=== PATIENT | female | born 1990 | race Caucasian/White ===

== ENCOUNTER → 2018-03-05 08:53 | Outpatient (CLI) | payer OTHER, SELFPAY ==
--- NOTE | 2018-03-05 08:56 | DI.RAD.S_ITS ---
PROCEDURE: XR CHEST 2V INDICATIONS: Persistent cough TECHNIQUE: 2 views of the chest were acquired. COMPARISON: None. FINDINGS: Surgical changes and devices: None. Lungs and pleura: No pleural effusions or pneumothorax. Lungs are clear. Mediastinum: Mediastinal contours are normal. Heart size is normal. Bones and chest wall: No suspicious bony abnormalities. Soft tissues appear unremarkable. IMPRESSION: No acute cardiopulmonary pathology. Dictated by: Jose Ogden M.D. on 03/05/2018 at 9:22 Approved by: Jose Ogden M.D. on 03/05/2018 at 9:22
[2018-03-05 09:21] LABS: D Dimer 356 ng/mL (<230)
== END ==
PROVIDERS: Visit Provider Physician Assistant
DX: R05 Cough (principal)
CPT/HCPCS: 36415; 71046; 85379

== ENCOUNTER 2023-11-05 06:07 | Observation (INO) | payer OTHER, SELFPAY ==
[2023-11-05] MEDS: TERBUTALINE 1 MG/ML VIAL 0.25 MG SUBCUT (07:45)
[2023-11-05] MEDS: MINERAL OIL 30 ML UDC TOP (07:47)
--- NOTE | 2023-11-05 08:38 | P.TNLD_ITS ---
Visit Information Visit Information Date of evaluation: 11/05/23 Primary OB Provider: Laina Villarreal On-call OB Provider: Laina Villarreal Reason for Evaluation: Yes other Comments/Additional reasons for admission: Lacey is a 33 year old at 37w2d by LMP and confirmed by 12 week ultrasound. She is here today for ECV due to breech presentation confirmed at 36w0d and 37w0d by in office ultrasound. Lacey thought her baby was head down since 32 weeks because she felt hiccups in lower abdomen, but now believes that baby has not changed position since that time except for rolling back and forth. Has been trying spinning babies positioning and chiropractic for the last 1.5 weeks. Plans to try acupuncture/moxibustion as well. Found procedure today painful, but tolerated it well. Vital Signs Vital Signs: BP: 134/78 HR: 90 Temp 97.1 F [facility] Surgical History (Updated 07/27/17 @ 05:46 by Conversion Provider) History of third molar tooth extraction Social History Smoking Status: Former smoker Objective Labs Labs: Laboratory Results - last 24 hr 11/05/23 06:50 Blood Type A Positive Antibody Screen Negative Evaluation Evaluation Baseline heart rate: 125 Variability: Moderate (11-25) monitor accelerations: Present Monitor Decelerations: Absent Contraction Frequency (minutes): 10 (irregular, painless) Category of Tracing: Reactive Comments: ECV: Ultrasound confirmed: vertex in mid, upper abdomen and spine on maternal Right with side wall/anterior placenta on that side. Per Dr. Morejon, placenta appears calcified via ultrasound and amniotic fluid appears normal. Forward soni attempted. Terbutaline given IM prior to procedure. Nitrous oxide used by Lacey during procedure. Fetus did not tolerate rotation, so discontinued attempt. Diagnosis, Plan/Disposition Final Diagnosis (1) Breech presentation: Status: Acute (2) Supervision of normal in third trimester: Status: Acute Plan/Disposition Plan: at 37w2d Breech presentation ECV attempted by Dr. Morejon and myself. Not successful. PCS scheduled for 11/22/23 at 39w5d. Recommend pulsatilla, moxibustion, continue spinning babies. Reviewed risks of cord prolapse and proper procedure with ROM at home. RTC for scheduled PNV next week in clinic. Discharge home today after 60 minutes of normal FHR tracing/RNST.
== END 2023-11-05 09:18 | disposition home or self-care (01) ==
PROVIDERS: Admitting Provider Advanced Practice Midwife; PCP Advanced Practice Midwife; Referring Provider Advanced Practice Midwife; Visit Provider Advanced Practice Midwife
DX: O32.1XX0 Maternal care for breech presentation, not applicable or unspecified (principal); Z3A.37 37 weeks gestation of pregnancy
CPT/HCPCS: 36415; 59050; 59412; 76815; 86850; 86900; 86901; 96372; G0378; A9270; G0379

== ENCOUNTER 2023-11-22 05:37 | Inpatient (IN) | payer OTHER, SELFPAY ==
[2023-11-22] MEDS: LACTATED RINGERS 1,000 ML 999 ML IV (07:21)
--- NOTE | 2023-11-22 07:45 | PM.OBHP.1 ---
OB HPI Date/Time Date of admission: 11/22/23 Date Patient Seen: 11/22/23 Time Patient Seen: 07:46 History of Present Condition Chief complaint: Section : 2 Para: 1 Estimated Date of Delivery: 11/24/23 Estimated Gestational Age (weeks): 39+5 Narrative: Lacey Barnett is a 33 year old female Comments: admitted for planned primary due to breech presentation. She denies regular ctx, VB, LOF, or decreased FM. Indications Operative indications ( section): breech presentation History of Present care: good care Dating criteria: LMP confirmed by 1st trimester US Ultrasounds: normal mid trimester US Narrative: Specific Issues/Plans Breech presentation (failed ECV)--> scheduled for primary 11/21 [facility] Preadmission Labs Blood type: A (+) positive -: Antibody screen: negative, Cystic fibrosis screen: unknown, GBS status: negative, HBsAG: negative, HIV: negative, HSV 1: unknown, HSV 2: unknown and RPR/VDLR: negative -: Chlamydia screen: not detected and Gonorrhea screen: not detected -: Rubella: immune and Varicella: immune HCT: 38.6 HCAB: negative PAP: Normal Evaluation Evaluation Baseline heart rate: 125 Variability: Moderate (11-25) monitor accelerations: Present Monitor Decelerations: Absent Contraction Frequency (minutes): 5 Category of Tracing: Reactive [facility] Medical History Vaginal delivery High herpes simplex virus (HSV) antibody titer Surgical History History of third molar tooth extraction Social History Smoking Status: Former smoker alcohol intake: former substance use type: does not use Meds Home Medications and Allergies Home Medications Medication Instructions Recorded Confirmed Type prenat.vits,bri,dvg-iual-hudwd 1 tab PO DAILY 02/25/18 11/12/23 History acyclovir 400 mg tablet 400 mg PO TID 11/12/23 11/12/23 History Allergies Allergy/AdvReac Type Severity Reaction Status Date / Time acetaminophen [From Tylenol] Allergy Verified 11/22/23 07:08 azithromycin Allergy hives Verified 11/22/23 07:08 SULFA Allergy Mild unknown Uncoded 11/12/23 11:01 Review of Systems Review of Systems ROS: Yes All systems reviewed with the patient and are negative except as otherwise documented OB Exam Vital signs Blood Pressure: 136/82 Pulse Rate: 95 Temperature: 98.8 F HENMT Head: normal to inspection Resp Effort & Inspection: normal respiratory effort and able to speak in complete sentences Cardio Rate: regular rate Rhythm: regular rhythm Extremities Lower extremity: Yes normal to inspection GI Other: gravid, nontender, nondistended Objective Labs 11/22/23 07:19 Assessment and Plan Assessment and Plan Assessment and Plan narrative: 33yo at 39+5wks admitted for planned primary due to breech presentation after failed ECV a few weeks ago. -CBC, T&S on admission -NST on admission -neuraxial anesthesia -GBS neg -PPH risk low -VTE risk low, SCDs for ppx -will move to OR for delivery once all teams ready counseling: It was explained to the patient that a section is a surgery to deliver the baby through an incision in the abdominal wall and uterus.? All procedures can be associated with risk and unforeseen complications, which can be immediate or delayed.? Risks and complications of section include, but are not limited to:? infection of the uterus, pelvic organs, or skin; inadvertent injury to internal organs such as the bowel, bladder, or possibly even the baby; blood loss, transfusion, and/or life-threatening hemorrhage requiring hysterectomy; blood clots in the legs, pelvic organs, or lungs; adverse reaction to medications or anesthesia during surgery; development of placenta accreta spectrum in a subsequent ; and increased risk of section in a subsequent . Time-Based Coding :: [30min] spent with patient and on the chart (including review of chart, obtaining history, exam, reviewing outside data, placing orders, documenting exam and treatment plan, and counseling patient) on [11/22/23].
[2023-11-22 07:56] VITALS: BP 136/82; PULSE 95; TEMP 37.1
[2023-11-22 08:00] LABS: Add Manual Diff / Slide Review NO; Basophils Absolute Auto 0 /uL (0-100); Basophils Percent Auto 0.4 % (0-2); Eosinophils Absolute Auto 100 /uL (0-450); Eosinophils Percent Auto 0.7 % (2-4); Hematocrit 33.7 % (36-46); Hemoglobin 11.4 g/dL (12.0-16.0); Lymphocytes Absolute Auto 1700 /uL (1100-4500); Lymphocytes Percent Auto 19.8 % (25-40); Mean Corpuscular HGB Conc 33.7 % (30-36); Mean Corpuscular Hemoglobin 29.7 PG (26-34); Mean Corpuscular Volume 88.1 fL (80-100); Monocytes Absolute Auto 800 /uL (0-900); Monocytes Percent Auto 9.9 % (3-14); Neutrophils Absolute Auto 5900 /uL (1500-7000); Neutrophils Percent Auto 69.2 % (50-75); Platelet Count 208 X10^3/uL (150-400); Red Blood Cell Count 3.83 X10^6/uL (4.0-5.2); White Blood Cell Count 8.5 X10^3/uL (4.5-11.0)
[2023-11-22] MEDS: CITRIC ACID/SODIUM CITRATE 15 ML SOLUTION 30 ML PO (08:04)
[2023-11-22] MEDS: CEFAZOLIN 2 GM/100 ML PREMIX 100 ML IV (08:40)
--- NOTE | 2023-11-22 08:51 | SUR.OPER ---
Supine on Padded OR bed, head on pillow, safety belt at thigh, arms secured on padded arm boards at <90 degrees abduction. Bump under right buttock. Legs uncrossed with pillow under knees, gel pad to heels, tape over blanket to lower legs.
--- NOTE | 2023-11-22 09:12 | SUR.OPER ---
Viable baby boy born at 0853 on 11-22-[birth year]23.
[2023-11-22 09:36] VITALS: BP 101/48; PULSE 67; RESP 16; TEMP 36.2; O2SAT 98
--- NOTE | 2023-11-22 09:36 | PM.OBCS.1 ---
Operative Date/Time/Diagnoses Date of procedure: 11/22/23 Time of procedure: 08:45 Pre-op diagnosis: 1. Hopkins intrauterine gestation at 39+5wks 2. Breech presentation Post-op diagnosis: same Procedure & Clinicians Procedure: Primary low transverse section Same procedure as scheduled: Yes Indications: 33yo at 39+5 weeks EGA admitted on 11/22/23 for planned due to breech presentation. Patient had undergone a failed ECV attempt at 37wks. Surgeon: Lucero Polk Click Yes if Unassisted: No Storage Specialist: Laina Villarreal Reason for Storage Specialist: Storage Specialist was necessary for timely, efficient, and safe completion of the procedure. Anesthesia Type: Spinal Operative Notes Findings: Normal-appearing uterus and bilateral fallopian tubes and ovaries. Clear fluid noted with AROM. Delivery productive of a viable male infant in tameka breech presentation with APGARs 8/9 and weighing 3509g. Closure Type: primary Specimen(s): cord blood Intraoperative meds administered: Duramorph Applied: Catheter Estimated Blood Loss (mL): 700 Blood products transfused: none Procedure in detail: The risks, benefits, indications and alternatives of the procedure were reviewed with the patient and informed consent was obtained. The patient was taken to the operating room where spinal anesthesia was obtained without difficulty and was found to be adequate. Sequential compression devices were placed bilaterally for VTE prophylaxis. She was then prepped and draped in the normal, sterile fashion in the dorsal supine position with a leftward tilt. She received 2g Ancef for surgical prophylaxis. A Pfannenstiel skin incision was then made with the scalpel and carried through to the underlying layer of fascia. The fascia was incised in the midline and the fascia was digitally. The rectus muscles were then at the midline. The peritoneum was identified, and entered digitally. The peritoneal incision was then extended horizontally, superiorly and inferiorly, with good visualization of the bladder. The Caesar retractor was then inserted. The lower uterine segment was incised in a transverse fashion with the scalpel. The uterine incision was then extended manually in a cephalad/caudad direction. The ?s sacrum was grasped and brought to the level of the hysterotomy. Pinard?s maneuver was used to atraumatically deliver the legs through the hysterotomy. A blue towel was placed around the sacrum and Loveset?s maneuver was performed to the level of the scapula.? The bilateral arms were swept and delivered followed by the head using the Ojutkbsys-Iiemlof-Nwer maneuver. The cord was doubly clamped and cut after a 60sec delay with the infant handed off to the waiting pediatrics team. The placenta was then removed spontaneously with gentle traction on the umbilical cord. The uterus was then left in-situ and cleared of all clots and debris. The uterine incision was repaired with 0-vicryl in a running, locked fashion. A second layer using 0-monocryl was then used to imbricate the hysterotomy with excellent hemostasis achieved. The hysterotomy was again noted to be hemostatic. The paracolic gutters were cleared of all clot and debris. The Caesar retractor was then removed. The fascia was reapproximated with 0-vicryl in a running fashion. The subcutaneous layer was closed with 3-0 vicryl in simple, interrupted sutures. The skin was closed with 4-0 monocryl in a subcuticular fashion. The incision was then dressed with steri-strips and an Aqucel dressing was applied. At the completion of the case, a Crede maneuver was performed with good uterine tone and minimal vaginal bleeding noted.? The patient tolerated the procedure well. Sponge, lap and needle counts were correct x3. The patient was taken to the recovery room in stable condition. The patient is a candidate for a trial of labor after . Complications: none Post-operative Condition: stable Disposition: PACU Aftercare: routine postop
[2023-11-22 09:41] VITALS: BP 98/60; PULSE 67; RESP 16; O2SAT 98
[2023-11-22 09:57] VITALS: BP 113/60; PULSE 78; RESP 16; TEMP 36.8; O2SAT 98
[2023-11-22 10:01] VITALS: BP 110/78; PULSE 78; RESP 16; O2SAT 98
--- NOTE | 2023-11-22 10:38 | PM.AN.REGBLK ---
Regional Block Pre-procedure Attending OB provider: Lucero Polk PMH/ROS narrative: Healthy 33yo female here for scheduled primary C/S for breech , otherwise normal; prior 7 yrs ago also unremarkable and delivered via vaginal delivery w/ uncomplicated labor epidural for analgesia. Pt has no other medical hx or anesthetic hx. No bleeding/clotting disorders, not on anticoagulants, no asthma, no HTN/pre-E/PIH. Plan for single shot spinal as primary surgical anesthetic. Pt agreeable. Hx: No personal or family history of anesthesia problems. Exam narrative: A&Ox4, no acute distress, not laboring. CTAB, nml WOB on RA. RRR MP2, no loose/missing teeth, no dentures, full neck ROM ASA Class: II Labs: Hct 33.7 % (36-46) L 11/22/23 07:19 Plt Count 208 X10^3/uL (150-400) 11/22/23 07:19 Medications: Current Medications Generic Name Dose Route Start Last Admin Trade Name Freq PRN Reason Stop Dose Admin Oxytocin/Lactated Ringer's 30 unit in 500 mls @ 200 mls/hr 11/22/23 07:24 Oxytocin Premix IV CONT PRN Bleeding Protocol Metoclopramide HCl 10 mg 11/22/23 09:59 Metoclopramide 10 Mg/2 Ml Inj IV NOW PRN Nausea And Vomiting Oxytocin 10 unit 11/22/23 07:24 Oxytocin 10 Unit/Ml Vial IM NOW PRN Bleeding Allergies: Allergies Allergy/AdvReac Type Severity Reaction Status Date / Time acetaminophen [From Tylenol] Allergy Verified 11/22/23 07:08 azithromycin Allergy hives Verified 11/22/23 07:08 SULFA Allergy Mild unknown Uncoded 11/12/23 11:01 Procedure Insertion date: 11/22/23 Insertion time: 08:29 Prep/Local: betadine x3 (Chloraprep) and 1% lidocaine Interspace: L3-4 Patient position: sitting Sensory level: Bilateral T4 Insertion: Yes CSF Post-procedure Anesthesia date END: 11/22/23 Post-procedure Anesthesia Assessment: Yes CV function: HR/BP stable, Yes Resp function: RR/sat/airway adequate, Yes Post-op hydration adequate, Yes Pain control adequate, Yes Nausea & vomiting absent, Yes Temperature > 36 C, Yes Mental status appropriate and No Anesthesia complications Course Course Course Narrative: Procedure: lumbar spinal, single shot Standard ASA monitors applied and on prior to beginning procedure Position: sitting, OR table Anesthesia procedural timeout: 820 Equipment: introducer, 25G pencil point spinal needle Sterile technique maintained: prepped w/ chloraprep, sterile gloves and sterile drape used, mask/head covering worn by wire winding machine operator Approach/site: midline/L3-4 Injection: +CSF, no pain/paresthesias on injection Spinal dose (intrathecal): 1.6mL hyperbaric bupiv (0.75% bupiv + 8.25% dextrose solution) + 150mcg Duramorph + 10mcg fentanyl Orders Ordered: ED Orders 11/22/23 07:19 Complete Blood Count AUTO DIFF Stat Type and Screen Stat Oxytocin/Lactated Ringer's (Oxytocin Premix) 30 unit in 500 mls @ 200 mls/hr IV CONT PRN; Protocol PRN Reason: Bleeding Metoclopramide HCl (Metoclopramide 10 Mg/2 Ml Inj) 10 mg IV NOW PRN PRN Reason: Nausea And Vomiting Oxytocin (Oxytocin 10 Unit/Ml Vial) 10 unit IM NOW PRN PRN Reason: Bleeding Discontinued Medications Citric Acid/Sodium Citrate (Citric Acid/Sodium Citrate 15 Ml Solution) 30 ml PO NOW ONE Stop: 11/22/23 07:25 Last Admin: 11/22/23 08:04 Dose: 30 ml Documented By: Cefazolin Sodium/Dextrose (Ancef) 100 mls @ 200 mls/hr IV NOW ONE Stop: 11/22/23 07:53 Last Infusion: 11/22/23 08:45 Dose: Infused Documented By: Admin: 11/22/23 08:40 Dose: 200 mls/hr Documented By: MAXIMO Lactated Ringer's (Lactated Ringers) 1,000 mls @ 999 mls/hr IV NOW ONE Stop: 11/22/23 08:24 Last Admin: 11/22/23 07:21 Dose: 999 mls/hr Documented By: Vital Signs Vital signs: Vital Signs - 8 hr 11/22/23 07:56 11/22/23 09:36 11/22/23 09:41 Temperature 98.8 F 97.2 F L Pulse Rate 95 H 67 67 Respiratory Rate 16 16 Blood Pressure 136/82 101/48 L 98/60 Pulse Oximetry 98 98 Oxygen Delivery Method Room Air Room Air 11/22/23 09:57 11/22/23 10:01 Temperature 98.2 F Pulse Rate 78 78 Respiratory Rate 16 16 Blood Pressure 113/60 110/78 Pulse Oximetry 98 98 Oxygen Delivery Method Room Air Room Air
--- NOTE | 2023-11-22 11:20 | PM.PROC.1 ---
Procedures Date/Time Date of procedure: 11/22/23 Time of procedure: 08:47 General Procedure description: Assistant Account Executive Documentation I assisted the OB resolution expert in the section for this patient. My responsibilities included retracting and suctioning, providing fundal pressure during delivery and following with suture during closure. Please see the OB's note for details of the surgery.
[2023-11-22] MEDS: KETOROLAC 30 MG/ML VIAL IV ×2 (15:13→21:11)
[2023-11-23] MEDS: KETOROLAC 30 MG/ML VIAL IV (03:14)
[2023-11-23 06:12] LABS: Add Manual Diff / Slide Review NO; Basophils Absolute Auto 100 /uL (0-100); Basophils Percent Auto 0.4 % (0-2); Eosinophils Absolute Auto 0 /uL (0-450); Eosinophils Percent Auto 0.2 % (2-4); Hematocrit 25.8 % (36-46); Hemoglobin 8.5 g/dL (12.0-16.0); Lymphocytes Absolute Auto 2000 /uL (1100-4500); Lymphocytes Percent Auto 16.4 % (25-40); Mean Corpuscular Hemoglobin 29.6 PG (26-34); Mean Corpuscular Volume 89.7 fL (80-100); Monocytes Absolute Auto 1200 /uL (0-900); Monocytes Percent Auto 9.9 % (3-14); Neutrophils Absolute Auto 9100 /uL (1500-7000); Neutrophils Percent Auto 73.1 % (50-75); Platelet Count 184 X10^3/uL (150-400); Red Blood Cell Count 2.88 X10^6/uL (4.0-5.2); Red Cell Distribution Width 13.8 % (11.6-14.8); White Blood Cell Count 12.5 X10^3/uL (4.5-11.0)
--- NOTE | 2023-11-23 08:51 | P.DS_ITS ---
Discharge Providers Provider Date of admission: 11/22/23 05:37 Discharge Date: 11/23/23 Primary care physician: Laina Villarreal CNM, [facility] Consults: 11/22/23 12:45 Consult to Farm Equipment Engineer Routine Comment: Discharge provider: Lucero Polk DO Summary Hospital Course Date Patient Seen: 11/23/23 Time Patient Seen: 08:52 Diagnoses: Term rao gestation at 39+5wks Breech presentation Postoperative anemia Hospital Course: 33yo [id number] admitted at 39+5wks for planned primary due to persistent breech presentation. Her delivery was uncomplicated, and productive of a viable male infant. Her course was unremarkable. On post-op day #1, she was ambulating, tolerating regular diet, voiding spontaneously with minimal lochia. Her pain was well controlled with oral medications, thus she was discharged to home on post-op day #1. Peripartum Data Delivery Method: Section Procedures: External monitoring delivery Spinal anesthesia complications: none Discharge Diagnosis (1) delivery delivered: Status: Acute (2) Postoperative anemia due to acute blood loss: Status: Acute (3) Breech presentation: Status: Acute Status at Discharge Cognitive/behavioral status at discharge: oriented Functional status at discharge: independent ambulation Overall status at discharge: patient is progressing back to baseline Time Spent with Patient Time attestation: Total time spent providing and/or coordinating discharge services: Time spent: Less than 30 minutes Objective Labs 11/23/23 06:03 Labs: Laboratory Results - last 24 hr 11/23/23 06:03 WBC 12.5 H RBC 2.88 L Hgb 8.5 L Hct 25.8 L MCV 89.7 MCH 29.6 MCHC 33.0 RDW 13.8 Plt Count 184 Neut % (Auto) 73.1 Lymph % (Auto) 16.4 L [place] % (Auto) 9.9 Eos % (Auto) 0.2 L Baso % (Auto) 0.4 Neut # (Auto) 9100 H Lymph # (Auto) 2000 [place] # (Auto) 1200 H Eos # (Auto) 0 Baso # (Auto) 100 Exam Vital Signs (past 8 hours): Oxygen Delivery Method Room Air vitals reviewed in OBIX, within normal parameters Const General: cooperative, healthy appearing, comfortable and No acute distress Resp Effort & Inspection: normal respiratory effort GI Inspection: normal to inspection Other: fundus firm and nontender at U-2 Skin General: no rashes or lesions noted Other: Pfannenstiel incision covered with Aquacel dressing, no strikethrough Neuro General: patient alert and patient awake Extrem General: normal to inspection, no pedal edema and no calf tenderness Psych Mood: congruent mood Affect: normal affect Discharge Plan Discharge Plan Patient Disposition: Home Provider Discharge Comment: Take ibuprofen 600 mg every 6 hours. Use oxycodone 5 mg every 4 hours as needed for breakthrough pain. Taken oral iron supplement every other day for the next 3 months due to your anemia postoperatively. Avoid lifting greater than 20 lb for at least 6 weeks. Avoid placing anything in the vagina for 6 weeks. Discharge orders & Medications Prescriptions: New oxycodone 5 mg Tablet 5 mg PO Q4H PRN (Reason: Pain, Moderate (4-6)) Qty: 10 0RF Continued prenat.vits,bri,kso-hfnu-efowj tablet 1 tab PO DAILY Discontinued acyclovir 400 mg tablet 400 mg PO TID Follow up/Referrals: Laina Villarreal, BEVERLEYM, [place] [Primary Care Provider] - (Follow-up at 1 week as scheduled.) Lucero Polk DO [Physician] - (Please don't hesitate to call our clinic if you have any issues with your incision healing.) Diet/Activity/Treatments Diet: Diet as Tolerated Activity: As tolerated. Skin/Wound/Dressing Care Report to your healthcare provider any signs of infection, such as:: chills, fever, increased pain, unusual drainage and unusual redness Dressing: The Aquacel dressing will come off at your 1 week appointment. You may shower normally with it in place. Visit Report/Discharge Packet Instructions: DI for , DI for Prescription Opioid Use Stand Alone Forms: Patient Portal/API, Stroke Signs & Symptoms Discharge Data Primary Care Provider: Laina Villarreal
[2023-11-23] MEDS: IBUPROFEN 600 MG TABLET PO ×2 (09:27→14:05)
[2023-11-23] MEDS: PRENATAL VIT,CALC/IRON/FOLIC 1 TABLET 1 TAB PO (09:28)
[2023-11-23] MEDS: DOCUSATE 100 MG CAPSULE PO (09:28)
== END 2023-11-23 18:00 | disposition home or self-care (01) | DRG 788 ==
PROVIDERS: Admitting Provider Student in an Organized Health Care Education/Training Program; PCP Advanced Practice Midwife; Referring Provider Student in an Organized Health Care Education/Training Program; Visit Provider Student in an Organized Health Care Education/Training Program
PROC: 10D00Z1 Extraction of Products of Conception, Low, Open Approach (ICD-10-PCS; CPT 59514; principal; 2023-11-22 07:45)
DX: O64.8XX0 Obstructed labor due to other malposition and malpresentation, not applicable or unspecified (principal); Z3A.39 39 weeks gestation of pregnancy; Z37.0 Single live birth
CPT/HCPCS: 36415; 59050; 85025; 86850; 86900; 86901; J0690; J1100; J1885; J2274; J2405; J3010